=== PATIENT | male | born 1980 | race Caucasian/White ===

== ENCOUNTER 2017-07-20 22:00 | Emergency (ER) | payer BC, OTHER ==
[~2017-07-20] VITALS: Ht 180.3 cm; Wt 95.3 kg
[2017-07-20] MEDS ORDERED: LIDOCAINE 1% VIAL ONE (22:20)
[2017-07-20] MEDS ORDERED: BOOSTRIX VACCINE SYRINGE IM ONE (22:30)
--- NOTE | 2017-07-20 22:31 | ER.PDOC ---
General Chief Complaint: Extremities Stated Complaint: LAC ON HAND Time seen by MD: 22:28 Source: patient Exam Limitations: no limitations History of Present Illness Initial Comments Laceration left thumb Occurred: just prior to arrival Where: home Severity: mild Allergies: Coded Allergies: Sulfa (Sulfonamide Antibiotics) (Verified Allergy, Intermediate, RASH, 08/03) Past Medical History Medical History: asthma Surgical History: shoulder Social History Smoking: quit greater than 1 year Alcohol Use: occassionally Drug Use: none Review of Systems Constitutional: no symptoms reported Respiratory: no symptoms reported Cardiovascular: no symptoms reported Skin: see HPI All Other Systems: Reviewed and Negative Physical Exam General Appearance: Alert, No Apparent Distress Hand: see diagram 1 - Lac Vascular: no vascular compromise Tendons: tendon function nml Forearm/Elbow/Arm: uninjured above wrist Head/ENT: nml inspection, pharynx nml Neck/Back: nml inspection, non-tender Resp/CVS: no resp distress, lungs clear, heart sounds nml, reg. rate & rhythm Abdomen: non-tender, no organomegaly Laceration/Wound Repair Laceration/Wound Repair : Wound Location: Left thumb Wound Length (cm): 1 Anesthesia: 1% Lidocaine Volume Anesthetic (ccs): 5 Wound's Depth, Shape: linear Irrigated w/ Saline (ccs): 30 Wound Repaired With: sutures Suture Size/Type: 4:0, ethilon Suture Style: interupted Number of Sutures: 2 Sterile Dressing Applied?: Yes Departure Time of Disposition: 22:30 Disposition: 01 HOME, SELF-CARE Impression: Primary Impression: Laceration of thumb, left Qualified Codes: S61.012A - Laceration without foreign body of left thumb without damage to nail, initial encounter Condition: Stable Referrals: KARLENE BURGESS MD (PCP) PRIMARY CARE PROVIDER Additional Instructions: Remove sutures in 7 days at your PCP or ED Apply Neosporin daily HYACINTH MADRID MD Jul 20, 2017 22:31
[2017-07-20] MEDS ORDERED: TRIPLE ANTIBIOTIC OINTMENT TP ONE (22:37)
--- NOTE | 2017-07-20 22:40 | NUR ---
WOUND CARE NEOSPORIN AND BANDAID APPLIED TO LEFT THUMB WOUND
[2017-07-20 22:44] VITALS: BP 148/98
== END 2017-07-20 22:42 | disposition home or self-care (01) ==
LOC: ER 22:00
DX: S61.012A Laceration without foreign body of left thumb without damage to nail, initial encounter (principal); J45.909 Unspecified asthma, uncomplicated; Z87.891 Personal history of nicotine dependence; Z88.2 Allergy status to sulfonamides; X58.XXXA Exposure to other specified factors, initial encounter; Y93.89 Activity, other specified; Y92.009 Unspecified place in unspecified non-institutional (private) residence as the place of occurrence of the external cause; Y99.8 Other external cause status
CPT/HCPCS: 12001; 90471; 99283; J2001